=== PATIENT | female | born 1975 | race African-American/Black ===

== ENCOUNTER 2018-10-12 18:31 | Inpatient (IN) | payer OTHER ==
[2018-10-12 18:45] VITALS: BMI 20.4
--- NOTE | 2018-10-12 19:11 | HP ---
COWS - Scale Resting Pulse: 1= NC 81-100 Sweatin= Chills/Flushing Restless Observation: 3= Extraneous Movement Pupil Size: 0= Normal to Room Light Bone or Joint Aches: 1= Mild Discomfort Runny Nose/ Eye Tearin= None GI Upset > 30mins: 2= Nausea/Diarrhea Tremor Observation: 0= None Yawning Observation: 1= 1-2x During Session Anxiety or Irritability: 2=Irritable/Anxious Goose Flesh Skin: 0=Smooth Skin COWS Score: 11 CIWA Score Nausea/Vomitin Muscle Tremors: None Anxiety: 4-Mod. Anxious/Guarded Agitation: 4-Moderately Restless Paroxysmal Sweats: No Perspiration Orientation: 0-Oriented Tacttile Disturbances: 2-Mild Itch/Numbness/Burn Auditory Disturbances: 0-None Visual Disturbances: 2-Mild Sensitivity Headache: 4-Moderately Severe CIWA-Ar Total Score: 19 - Admission Criteria [facility]ASAS Guidelines: Admission for Medically Managed Detox: Requires at least one of the followin. CIWA greater than 12 2. Seizures within the past 24 hours 3. Delirium tremens within the past 24 hours 4. Hallucinations within the past 24 hours 5. Acute intervention needed for co occurring medical disorder 6. Acute intervention needed for co occurring psychiatric disorder 7. Severe withdrawal that cannot be handled at a lower level of care (continued vomiting, continued diarrhea, abnormal vital signs) requiring intravenous medication and/or fluids 8. Admission [facility] Allergies/Adverse Reactions: Allergies Allergy/AdvReac Type Severity Reaction Status Date / Time No Known Allergies Allergy Verified 10/12/18 18:57 History of Present Illness: reports 6-pk x 24 oz beer daily since age 23 , intermittent sobriety since , latest use last night , went to [facility] and was brought to this facility , reports she starts drinking around 3 p.m. , denies blackouts or seizures , denies tremors , reports agitation if not drinking . previous detox summer 2017 [facility] rehab . claims heroin use x 2 months 3 bags almost daily , latest use 2 days ago , denies IVDU . utox + thc , camron negative for opiates cannabis use ; 10 joints/day since age 17 cocaine : 50-100 $ /day denies IVDU tobacco : 5-10 cigs/day Was in outpt program [facility] in [facility] , latest there summer 2017 denies meds PMhx : denies pshx ; denies psych : depression , denies SI / Hi SHx : homeless , unemployed [facility] 10/04/18 . 5 children ages 21, 19, 15,11, 2 , minors w/ bio father . Exam Limitations: Clinical Condition - Ebola screening Have you traveled outside of the country in the last 21 days: No (N) Have you had contact with anyone from an Ebola affected area: No Have you been sick,other than usual withdrawal symptoms: No Do you have a fever: No - Review of Systems Constitutional: Loss of Appetite EENT: reports: No Symptoms Reported Respiratory: reports: No Symptoms reported Cardiac: reports: No Symptoms Reported GI: reports: See HPI : reports: No Symptoms Reported Musculoskeletal: reports: Muscle Pain Integumentary: reports: No Symptoms Reported Neuro: reports: Headache Endocrine: reports: No Symptoms Reported Psychiatric: reports: Orientated x3, Agitated, Anxious Patient History - Smoking Cessation Smoking history: Current every day smoker Have you smoked in the past 12 months: Yes Aproximately how many cigarettes per day: 5 Hx Chewing Tobacco Use: No Initiated information on smoking cessation: No Family Disease History - Family Disease History Family History: Denies Admission Physical Exam [facility] - Vital Signs Vital Signs: Vital Signs - 24 hr 10/12/18 18:43 Temperature 96.3 F L Pulse Rate 84 Respiratory 18 Rate Blood Pressure 99/72 - Physical General Appearance: Yes: Moderate Distress, Anxious HEENTM: Yes: EOMI, Hearing grossly Normal, Normocephalic, Normal Voice Respiratory: Yes: Chest Non-Tender, Lungs Clear, Normal Breath Sounds Neck: Yes: No masses,lesions,Nodules, Trachea in good position Cardiology: Yes: Regular Rhythm, Regular Rate, S1, S2 Abdominal: Yes: Non Tender, Soft Genitourinary: Yes: Within Normal Limits Back: Yes: Normal Inspection Musculoskeletal: Yes: Gait Steady Extremities: Yes: Non-Tender Neurological: Yes: Motor Strength 5/5 - Diagnostic (1) Alcohol abuse Current Visit: Yes Status: Acute (2) Cannabis dependence Current Visit: Yes Status: Chronic (3) Cocaine abuse Current Visit: Yes Status: Chronic (4) Nicotine dependence Current Visit: Yes Status: Chronic Qualifiers: Nicotine product type: cigarettes BHS Breath Alcohol Content Breath Alcohol Content: 0 Urine Pregancy Test - Result Urine Test Results: Negative - NO line present Urine Drug Screen - Results Drug Screen Negative: No Urine Drug Screen Results: THC-Marijuana, CAMRON-Cocaine Inpatient Rehab Admission - Rehab Decision to Admit Inpatient rehab admission?: No
[2018-10-12] MEDS ORDERED: IBUPROFEN 400 MG TABLET (FP) PO PRN (21:47)
[2018-10-12] MEDS ORDERED: MAGNESIUM CITRATE 300 ML BOTTLE PO PRN (21:47)
[2018-10-12] MEDS ORDERED: P-EPHED 60MG/TRIPROLIDI 2.5MG TABLET PO PRN (21:47)
[2018-10-12] MEDS ORDERED: ACETAMINOPHEN 325 MG TABLET (FP) PO PRN ×2 (21:47)
[2018-10-12] MEDS ORDERED: METHOCARBAMOL 500 MG TABLET PO PRN (21:47)
[2018-10-12] MEDS ORDERED: MAG HYDROX/AL HYDROX/SIMETH 30 ML UNIT-DOSE CUP PO PRN (21:47)
[2018-10-12] MEDS ORDERED: DICYCLOMINE HCL 10 MG CAPSULE PO PRN (21:47)
[2018-10-12] MEDS ORDERED: hydrOXYzine PAMOATE 25 MG CAPSULE (FP) PO PRN (21:47)
[2018-10-12] MEDS ORDERED: ONDANSETRON *ODT* 4 MG TABLET SL PRN (21:47)
[2018-10-12] MEDS ORDERED: MENTHOL/PHENOL 1 EACH UD MM PRN (21:47)
[2018-10-12] MEDS ORDERED: MAGNESIUM HYDROX 2400MG/30ML ORAL SUSPENSION 30 ML CUP PO PRN (21:47)
[2018-10-12] MEDS ORDERED: BISMUTH SUBSALICYLATE 524 MG/30 ML UD PO PRN (21:47)
[2018-10-12] MEDS: diazePAM 5 MG TABLET PO SCH (22:54)
[2018-10-12] MEDS: MELATONIN 5 MG TABLETS PO PRN (22:55)
[2018-10-12] MEDS: THIAMINE HCL 100 MG TABLET (FP) PO SCH (22:58)
[2018-10-13] MEDS: diazePAM 5 MG TABLET PO SCH ×3 (06:54→23:31)
[2018-10-13 11:05] LABS: HEMOGLOBIN 12.9 GM/dL (10.7-15.3); MCH 32.2 pg (25.7-33.7); MCHC 32.2 g/dl (32.0-36.0); MEAN PLT VOLUME 8.2 fl (7.5-11.1); PLATELET COUNT 337 K/MM3 (134-434); RDW 13.3 % (11.6-15.6); WHITE BLOOD COUNT 6.6 K/mm3 (4.0-10.0)
[2018-10-13 11:06] LABS: ALBUMIN 3.1 g/dl (3.4-5.0); ALK PHOS 84 U/L (45-117); ANION GAP 7 MMOL/L (8-16); BILIRUBIN,TOTAL 0.3 mg/dL (0.2-1); BLOOD UREA NITROGEN 15 mg/dL (7-18); CALCIUM 8.4 mg/dL (8.5-10.1); CHLORIDE 106 mmol/L (98-107); CO2 26 mmol/L (21-32); CREATININE 0.7 mg/dL (0.55-1.3); GLUCOSE,RANDOM 87 mg/dL (74-106); POTASSIUM 3.8 mmol/L (3.5-5.1); SGOT/AST 11 U/L (15-37); SGPT/ALT 16 U/L (13-61); SODIUM 139 mmol/L (136-145); TOT PROT 6.5 g/dl (6.4-8.2)
[2018-10-13] MEDS: diazePAM 5 MG TABLET PO PRN ×2 (11:13→18:35)
[2018-10-13] MEDS: PRENATAL VITAMINS W/ FOLIC ACID TABLET (FP) PO SCH (11:13)
[2018-10-13] MEDS: NICOTINE 14 MG/24 HOURS TOPICAL PATCH TD SCH (11:13)
[2018-10-13] MEDS: NICOTINE POLACRILEX 2 MG GUM BUC PRN ×2 (11:13→17:38)
--- NOTE | 2018-10-13 17:47 | PN ---
[facility] Progress Note Note: Pt was noted sleeping in bed during morning rounds Pt was breathing even, unlabored but snoring loudly Pt difficult to arouse out of sleep probably because pt had been recently medicated. Pt was not in distress, arouses to painful stimuli but only to pull sheets over face, not willing to be properly evaluated. Will continue to monitor pt clinically and informed nursing staff of same Vital Signs Temperature 97.5 F L 10/13/18 09:50 Pulse Rate 81 10/13/18 09:50 Respiratory Rate 18 10/13/18 09:50 Blood Pressure 91/62 10/13/18 09:50 O2 Sat by Pulse Oximetry (%) Laboratory Last Values WBC 6.6 K/mm3 (4.0-10.0) 10/13/18 07:45 RBC 4.00 M/mm3 (3.60-5.2) 10/13/18 07:45 Hgb 12.9 GM/dL (10.7-15.3) 10/13/18 07:45 Hct 40.0 % (32.4-45.2) 10/13/18 07:45 MCV 100.0 fl (80-96) H 10/13/18 07:45 MCH 32.2 pg (25.7-33.7) 10/13/18 07:45 MCHC 32.2 g/dl (32.0-36.0) 10/13/18 07:45 RDW 13.3 % (11.6-15.6) 10/13/18 07:45 Plt Count 337 K/MM3 (134-434) 10/13/18 07:45 MPV 8.2 fl (7.5-11.1) 10/13/18 07:45 Sodium 139 mmol/L (136-145) 10/13/18 07:45 Potassium 3.8 mmol/L (3.5-5.1) 10/13/18 07:45 Chloride 106 mmol/L (98-107) 10/13/18 07:45 Carbon Dioxide 26 mmol/L (21-32) 10/13/18 07:45 Anion Gap 7 MMOL/L (8-16) L 10/13/18 07:45 BUN 15 mg/dL (7-18) 10/13/18 07:45 Creatinine 0.7 mg/dL (0.55-1.3) 10/13/18 07:45 Creat Clearance w eGFR 92.22 (>60) 10/13/18 07:45 Random Glucose 87 mg/dL (74-106) 10/13/18 07:45 Calcium 8.4 mg/dL (8.5-10.1) L 10/13/18 07:45 Total Bilirubin 0.3 mg/dL (0.2-1) 10/13/18 07:45 AST 11 U/L (15-37) L 10/13/18 07:45 ALT 16 U/L (13-61) 10/13/18 07:45 Alkaline Phosphatase 84 U/L (45-117) 10/13/18 07:45 Total Protein 6.5 g/dl (6.4-8.2) 10/13/18 07:45 Albumin 3.1 g/dl (3.4-5.0) L 10/13/18 07:45 RPR Titer Nonreactive (NONREACTIVE) 10/13/18 07:45 HIV 1&2 Antibody Screen Negative 10/13/18 07:45 HIV P24 Antigen Negative 10/13/18 07:45 Labs noted, no gross abnormality will order increase hydration re low BP, Ensure BID for low albumin/low ca to continue detox
[2018-10-13] MEDS: MELATONIN 5 MG TABLETS PO PRN (23:31)
[2018-10-13] MEDS: THIAMINE HCL 100 MG TABLET (FP) PO SCH (23:31)
[2018-10-14] MEDS: diazePAM 5 MG TABLET PO PRN ×3 (07:16→18:18)
[2018-10-14] MEDS: NICOTINE 14 MG/24 HOURS TOPICAL PATCH TD SCH (10:38)
[2018-10-14] MEDS: PRENATAL VITAMINS W/ FOLIC ACID TABLET (FP) PO SCH (10:41)
[2018-10-14] MEDS: diazePAM 5 MG TABLET PO SCH ×2 (10:41→22:14)
[2018-10-14] MEDS: NICOTINE POLACRILEX 2 MG GUM BUC PRN ×3 (10:42→22:15)
--- NOTE | 2018-10-14 15:59 | PN ---
S CIWA - CIWA Score Nausea/Vomitin-Mild Nausea/No Vomiting Muscle Tremors: 3 Anxiety: 3 Agitation: 3 Paroxysmal Sweats: 1-Minimal Palms Moist Orientation: 2-Disoriented Date<2 days Tacttile Disturbances: 0-None Auditory Disturbances: 0-None Visual Disturbances: 0-None Headache: 1-Very Mild CIWA-Ar Total Score: 14 S COWS - Scale Resting Pulse: 1= ND 81-100 Sweatin= Chills/Flushing Restless Observation: 1= Difficult to Sit Still Pupil Size: 0= Normal to Room Light Bone or Joint Aches: 1= Mild Discomfort Runny Nose/ Eye Tearin= Nasal Congestion GI Upset > 30mins: 1= Stomach Cramp Tremor Observation of Outstretched Hands: 2= Slight Tremor Visible Yawning Observation: 1= 1-2x During Session Anxiety or Irritability: 2=Irritable/Anxious Goose Flesh Skin: 0=Smooth Skin COWS Score: 11 S Progress Note (SOAP) Subjective: report doing better today ambulating on hallway wants to be seen by a psychiatrist to resume trazodon and seroquel Objective: 10/14/18 15:58 Vital Signs Temperature 98.1 F 10/14/18 13:11 Pulse Rate 96 H 10/14/18 13:11 Respiratory Rate 18 10/14/18 13:11 Blood Pressure 103/63 10/14/18 13:11 O2 Sat by Pulse Oximetry (%) Laboratory Last Values WBC 6.6 K/mm3 (4.0-10.0) 10/13/18 07:45 RBC 4.00 M/mm3 (3.60-5.2) 10/13/18 07:45 Hgb 12.9 GM/dL (10.7-15.3) 10/13/18 07:45 Hct 40.0 % (32.4-45.2) 10/13/18 07:45 MCV 100.0 fl (80-96) H 10/13/18 07:45 MCH 32.2 pg (25.7-33.7) 10/13/18 07:45 MCHC 32.2 g/dl (32.0-36.0) 10/13/18 07:45 RDW 13.3 % (11.6-15.6) 10/13/18 07:45 Plt Count 337 K/MM3 (134-434) 10/13/18 07:45 MPV 8.2 fl (7.5-11.1) 10/13/18 07:45 Sodium 139 mmol/L (136-145) 10/13/18 07:45 Potassium 3.8 mmol/L (3.5-5.1) 10/13/18 07:45 Chloride 106 mmol/L (98-107) 10/13/18 07:45 Carbon Dioxide 26 mmol/L (21-32) 10/13/18 07:45 Anion Gap 7 MMOL/L (8-16) L 10/13/18 07:45 BUN 15 mg/dL (7-18) 10/13/18 07:45 Creatinine 0.7 mg/dL (0.55-1.3) 10/13/18 07:45 Creat Clearance w eGFR 92.22 (>60) 10/13/18 07:45 Random Glucose 87 mg/dL (74-106) 10/13/18 07:45 Calcium 8.4 mg/dL (8.5-10.1) L 10/13/18 07:45 Total Bilirubin 0.3 mg/dL (0.2-1) 10/13/18 07:45 AST 11 U/L (15-37) L 10/13/18 07:45 ALT 16 U/L (13-61) 10/13/18 07:45 Alkaline Phosphatase 84 U/L (45-117) 10/13/18 07:45 Total Protein 6.5 g/dl (6.4-8.2) 10/13/18 07:45 Albumin 3.1 g/dl (3.4-5.0) L 10/13/18 07:45 RPR Titer Nonreactive (NONREACTIVE) 10/13/18 07:45 HIV 1&2 Antibody Screen Negative 10/13/18 07:45 HIV P24 Antigen Negative 10/13/18 07:45 lab noted Assessment: 10/14/18 15:59 withdrawal sx Plan: continue detox
[2018-10-14] MEDS ORDERED: QUEtiapine FUMARATE 50 MG TABLET PO SCH (22:00)
[2018-10-14] MEDS: THIAMINE HCL 100 MG TABLET (FP) PO SCH (22:14)
[2018-10-14] MEDS: MELATONIN 5 MG TABLETS PO PRN (22:15)
[2018-10-15] MEDS ORDERED: diazePAM 5 MG TABLET PO SCH (06:00)
[2018-10-15 09:17] VITALS: BP 108/69; PULSE 99; TEMP 96.8
--- NOTE | 2018-10-15 11:22 | EKG ---
Test Reason : Blood Pressure : / mmHG Vent. Rate : 083 BPM Atrial Rate : 083 BPM P-R Int : 158 ms QRS Dur : 086 ms QT Int : 408 ms P-R-T Axes : 061 063 063 degrees QTc Int : 479 ms NORMAL SINUS RHYTHM CANNOT RULE OUT ANTERIOR INFARCT , AGE UNDETERMINED ABNORMAL ECG NO PREVIOUS ECGS AVAILABLE Confirmed by CHERRY RICHMOND MD ([id number]) on 10/15/2018 11:21:42 AM Referred By: Confirmed By:CHERRY RICHMOND MD
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
== END 2018-10-15 08:40 | disposition home or self-care (01) | DRG 774 ==
LOC: YASAS 18:31 → Y3N 21:48
PROVIDERS: ADMIT Surgery; ATTEND Surgery
PROC: HZ2ZZZZ Detoxification Services for Substance Abuse Treatment (ICD-10-PCS; principal; 2018-10-12)
DX: F10.230 Alcohol dependence with withdrawal, uncomplicated (principal); F14.20 Cocaine dependence, uncomplicated; F12.20 Cannabis dependence, uncomplicated; F17.210 Nicotine dependence, cigarettes, uncomplicated
CPT/HCPCS: 36415; 80053; 85027; 86593; 87389; 93005; 93010